=== PATIENT | male | born 1950 | race Caucasian/White ===

== ENCOUNTER 2021-10-15 12:29 | Day surgery (SDC) | payer MEDICARE ==
[~2021-10-15] VITALS: Ht 165.4 cm; Wt 75.0 kg
[~2021-10-15 12:29] MED LIST: CALCIUM 500500 MG PO; FISH OIL1 IU PO; MAGNESIUM500 MG PO; TYLENOL W/COD1 UDTAB PO; VITAMIN C BUFF500 MG PO
[2021-10-15 12:55] VITALS: BP 156/89; PULSE 62; TEMP 99.3
[2021-10-15 13:58] VITALS: BP 141/79; PULSE 57; TEMP 98.3
--- NOTE | 2021-10-15 14:11 | NUR ---
1253- PATIENT BROUGHT BACK AMBULATORY TO ROOM 6 WITH STEADY GAIT. ASSESSMENT COMPLETE. CONSENT SIGNED. GOWN ON. 1330- DR GARDNER IN TO GO OVER PROCEDURE WITH PATIENT. SUPPLIES AT BEDSIDE FOR PEG REPLACEMENT. 1344- PROCEDURE COMPLETE. 1358- DISCHARGE INSTRUCTIONS GONE OVER WITH PATIENT AND FOLDER GIVEN TO PT. VS MONITORED. 1359- ESCORTED OUT TO PRIVATE VEHICLE IN STABLE CONDITION.
== END 2021-10-15 13:59 | disposition home or self-care (01) ==
LOC: SDCO 12:29
DX: K94.23 Gastrostomy malfunction (principal); Z87.891 Personal history of nicotine dependence
CPT/HCPCS: 32167

== ENCOUNTER 2022-11-27 10:42 | Emergency (ER) | payer MEDICARE ==
[~2022-11-27] VITALS: Ht 170.2 cm; Wt 75.0 kg
[2022-11-27 10:50] VITALS: TEMP 99
[2022-11-27 11:58] VITALS: BP 158/89; PULSE 88
== END 2022-11-27 11:59 | disposition home or self-care (01) ==
LOC: COL.ER 10:42
DX: K94.23 Gastrostomy malfunction (principal); Z87.891 Personal history of nicotine dependence